=== PATIENT | female | born 1955 | race Caucasian/White ===

== ENCOUNTER 2019-03-18 12:15 | Emergency (ER) | payer OTHER ==
[2019-03-18 12:21] VITALS: BP 141/65; PULSE 67; TEMP 97.8; BMI 29.2
--- NOTE | 2019-03-18 13:33 | PDOC ---
History of Present Illness - General Chief Complaint: Eye Problem Stated Complaint: BLEACH IN EYE Time Seen by Provider: 03/18/19 13:15 History Source: Patient Exam Limitations: No Limitations - History of Present Illness Initial Comments: 03/18/19 13:28 Patient is a 64-year-old female who presents to the ED with complaint of getting bleach in her right eye this morning at about 9 AM. She states she was pouring household bleach into her washing machine that had already filled up with water. The bleach hit the water and splashed up into her right eye. She states she felt immediate burning. She turned to the sink next to her washing machine and immediately washed out her eye for several minutes. She states she used only water to wash her eye out. She does admit to slight irritation on the medial aspect of her eye and is unsure if she has any visual changes. The patient does wear glasses and did not bring them with her. She denies any foreign body sensation. She denies any past medical history or allergies to medications. Patient states that she flushed her eye for at least 20 minutes at home immediately. Past History - Past Medical History Allergies/Adverse Reactions: Allergies Allergy/AdvReac Type Severity Reaction Status Date / Time No Known Allergies Allergy Verified 03/18/19 12:21 Home Medications: Ambulatory Orders Cephalexin Monohydrate [Keflex -] 500 mg PO BID #14 capsule 11/07/14 COPD: No Psychiatric Problems: Yes (ANXIETY, DEPRESSION, BIPOLAR.) - Psycho Social/Smoking Cessation Hx Smoking History: Current every day smoker Have you smoked in the past 12 months: Yes Number of Cigarettes Smoked Daily: 1 Information on smoking cessation initiated: No Hx Alcohol Use: No Drug/Substance Use Hx: No Substance Use Type: None Review of Systems - Review of Systems Comments:: 03/18/19 13:29 - Review of Systems Able to Perform ROS?: Yes Constitutional: No: Fever, Chills, Loss of Appetite, Night Sweats, Weakness; + eye irritation right HEENTM: No: Ear Pain, Throat Pain, Throat Swelling, Mouth Pain, Difficulty Swallowing Respiratory: No: Cough, Shortness of Breath, Wheezing, Sputum Production Cardiac (ROS): No: Chest Pain, Chest Tightness, Palpitations, Irregular Heart Beat, Edema ABD/GI: No: Nausea, Vomiting, Abdominal Pain, Diarrhea : No Dysuria, No Hematuria, No Frequency, No Urgency Musculoskeletal: No: Muscle Pain, Back Pain, Joint Pain, Muscle Weakness, Neck Pain Integumentary: No: Lesions, Rash Neurological: No: Headache, Numbness, Tingling, Weakness, Speech Difficulties *Physical Exam - Vital Signs Last Vital Signs Temp Pulse Resp BP Pulse Ox 97.8 F 67 18 141/65 99 03/18/19 12:16 03/18/19 12:16 03/18/19 12:16 03/18/19 12:16 03/18/19 12:16 - Physical Exam 03/18/19 13:46 - Physical Exam General Appearance: Nourished, Appropriately Dressed, No Distress HEENT: EOMI, Normal Voice, No Pharyngeal Erythema, No Muffled/Hoarse voice, No Tonsillar Exudate, No Tonsillar Erythema, No Nasal Congestion, No Rhinorrhea, Hearing Grossly Normal; Right eye with mild injection medial conjunctiva. Fluorescein stain performed with no uptake appreciated. Visual acuity 20/100 right eye, and 20/70 left eye. Patient does not have her glasses with her. EOMI without pain. Globes nontender to palpation bilaterally. B/l eyes flushed in the ED for 10 minutes. Neck: Supple, No Lymphadenopathy (R), No Lymphadenopathy (L), No Rigidity, No Decreased range of motion Respiratory/Chest: Lungs Clear, Normal Breath Sounds. No Respiratory Distress, No Accessory Muscle Use Cardiovascular: Regular Rhythm, Regular Rate, S1, S2 Musculoskeletal: Normal Inspection. No Decreased Range of Motion Extremity: Normal Capillary Refill, Normal Inspection Integumentary: Normal Color, Dry. No Rash Neurologic: ultrasound technologist sonographer II-XII NML intact, Fully Oriented, Alert, Normal Mood/Affect, Normal Response Procedures - Eye Procedure Alcaine Drops Administered: Yes Eye Irrigated w/ Saline(Edwin Lens): Yes (eyewash station x 10 minutes) Progress: 03/18/19 13:49 fluorescein stain R eye without any uptake appreciated Medical Decision Making - Medical Decision Making 03/18/19 13:27 Spoke with Poison Control And they suggest irrigation for 10 to 15 minutes with lukewarm water. If the patient is not having anything aside from mild irritation there is no need for emergent ophthalmologic intervention. Patient is currently rinsing at the eyewash station. 03/18/19 13:49 Assessment: Patient is a 64-year-old female with a right chemical exposure to her eye. Her eye was immediately rinsed in the ED for 10 minutes at the eyewash station. Plan: -Eye was immediately rinsed in the ED at the eyewash station for 10 minutes. -Spoke with poison control and they suggest eye washing only if there is no visual changes and there is just minor irritation. -The patient should follow-up with ophthalmology within 1 to 2 days for repeat evaluation. She has been given strict return precautions such as worsening pain , visual changes, curtainlike closing of the right eye, or any other worsening symptoms. She understands and agrees with this treatment plan and the patient is stable for discharge. Discharge - Discharge Information Problems reviewed: Yes Clinical Impression/Diagnosis: Chemical exposure of eye Condition: Stable Disposition: HOME - Follow up/Referral Referrals: Valerie Partida MD [Primary Care Provider] - Sascha Ochoa MD [Staff Physician] - 2 Days - Patient Discharge Instructions Patient Printed Discharge Instructions: DI for Chemical Eye Burn Additional Instructions: Avoid putting any drops or ointments in your eye. If your eye is bothering you just splashed cold water on it. Be sure to see the eye doctor within the next 2 days for repeat evaluation. Avoid rubbing your eye. Return to the emergency department for any worsening pain, visual changes, curtainlike closing of the right eye, or any other worsening symptoms. - Post Discharge Activity
[2019-03-18] MEDS ORDERED: FLUORESCEIN NA 1 EA STRIP ONE (13:36)
== END 2019-03-18 14:00 | disposition home or self-care (01) ==
LOC: JERFT 12:15
PROC: 4A07X0Z Measurement of Visual Acuity, External Approach (ICD-10-PCS; principal; 2019-03-18)
PROC: 3E1CX8Z Irrigation of Eye using Irrigating Substance (ICD-10-PCS; 2019-03-18)
DX: T54.91XA Toxic effect of unspecified corrosive substance, accidental (unintentional), initial encounter (principal); T26.81XA Corrosions of other specified parts of right eye and adnexa, initial encounter; Y93.E2 Activity, laundry; Y92.038 Other place in apartment as the place of occurrence of the external cause; Y99.8 Other external cause status
CPT/HCPCS: 66999; 99173; 99283-25